=== PATIENT | male | born 1970 | race Caucasian/White ===

== ENCOUNTER → 2016-10-02 | Outpatient (CLI) | payer SELFPAY ==
[~2016-10-02] MED LIST: FNST5T PO
[2016-10-02 14:41] VITALS: BP 143/92
--- NOTE | 2016-10-02 14:41 | Urgent Care T Sheet Gen (E) ---
Intake General Temperature (Fahrenheit): 98.3 Pulse: 73 Blood Pressure Systolic: 143 Blood Pressure Diastolic: 92 Respirations: 18 SPO2: 97 Description of Symptoms Patient presents complaining of urinary retention. Patient just moved from [place] to [place]. Hasn't established with a PCP. Patient states he has dealt with urinary retention for years however it has gotten worse over the past 5 years. Patient states his dad has similar problems. Patient's last doctor, Dr Bear in [facility], has seen him numerous times regarding urination. Patient states his last ALLEY, PSA and kidney function was done less than a year ago and was ok. Patient states Dr Bear has said he "has a shy bladder". Patient notes hesitation. States it takes him several minutes to go and he doesn't feel fully empty. Has tried behavior changes such as double voiding and sitting while voiding. Patient isn't a patient of Dr Romero' however through his mother was prescribed Flomax 0.4mg daily approx 2 weeks ago without being seen. Patient states that initially the Flomax helped however it stopped being effective. The patient started to double the dose 2 days ago however hasn't noticed any improvement. Patient is concerned that his urinary retention will turn into something more serious. States his dad has to have stents placed due to his urinary retention. Patient takes irbesartan 300mg daily for treatment of HTN. Respiratory Constitutional Symptoms: No syptoms reported EENTM: No symptoms reported Respiratory: No symptoms reported Cardiovascular: No symptoms reported Gastrointestinal/Abdominal: No symptoms reported Genitourinary: Decreased output All Other Systems Reviewed Remaining Systems: All other systems reviewed with negative findings Physical Exam Physical Exam General Appearance: WD/WN No apparent distress Respiratory Exam: Lungs clear Normal breath sounds Cardiovascular Exam: Regular rate, rhythm Back Exam: No CVA tenderness Departure Urgent Care Impression Impression: Primary Impression: BPH (benign prostatic hypertrophy) Qualified Code: N40.1 - Benign prostatic hyperplasia with lower urinary tract symptoms Departure Disposition: 01 HOME OR SELF-CARE Condition: Stable Additional Instructions: Long discussion with patient regarding workup, treatment, etc. Told him I'd like for a urologist to evaluate and treat him however the patient states he doesn't have insurance and doesn't want to spend a ton of money right now. My nurse called several low income clinics, including [facility], [facility], [facility], and none of those clinics have urologists on staff. I reiterated the importance of having a urologist see him and run appropriate tests versus just picking meds and treating that way. Patient states that Dr Bear has checked appropriate lab in the past and has done ultrasounds, etc, all of which came back normal. Since the Flomax is not working, I have instructed him to stop and I have switched him to Proscar daily. Instructed him to call Dr Romero' office on Wednesday and schedule an appointment to be seen. Since he doesn't want to see a urologist until he gets insurance, his BPH needs to be managed by a PCP and not urgent care. Patient understands DC instructions. All questions were answered. Scripts Finasteride 5 Mg Tablet5 Mg PO DAILY #30 TAB Prov:LOUIE BELLAMY 10/02/16 End of report . LOUIE BELLMAY Oct 02, 2016 14:41
== END ==
LOC: EDUNIT# 13:00 → MHUC 13:00
PROVIDERS: ATTEND Physician Assistant
DX: N40.1 Benign prostatic hyperplasia with lower urinary tract symptoms (principal)
CPT/HCPCS: 99213